=== PATIENT | female | born 1985 | race Caucasian/White ===

== ENCOUNTER 2023-05-15 07:57 | Outpatient (AMB) | payer OTHER, SELFPAY ==
--- NOTE | 2023-05-15 07:59 | A.OFFVIS_ITS ---
Intake Vital Signs 05/15/23 08:09 Height 5 ft 1 in Weight 262 lb 2 oz BMI 49.5 BP 102/58 L Blood Pressure Location Lt brachial Position Sitting Pulse 76 Pulse Source Pulse Oximeter Intake Visit Reasons: ENP-Numbness and Weakness bilateral both arms/Lvm Intake Note: Numness and weakness in bilateral arms, patient states more on the left. Reptile Keeper Required: No Allergies Penicillins [PENICILLINS] Allergy (Unknown, Unverified 05/15/23 08:01) UNKNOWN HPI HPI Comments History of Present Illness Details 37 y/o female patient with HTN and hx of gastric sleeves presents for new in-person visit for evaluation of bilateral arm and hands numbness and weakness. Pt reports bilateral arms and hands numbness, tingling and weakness. The numbness and tingling comes from her elbows to hands. It started couple of month ago, and now more progressed and happens more often. Pt states that her hands feel hurt, having throbbing pain to hold something for a long time or gripping. Pt's arms can be numbness when she sleep, and needs to stretch and shakes her arms. She needs to use her hands alternatively when she drives due to numbness and tingling. 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 She has not tried physical therapy or occupational therapy. Pt has hx of gastric sleeves, 2 years ago, she is on vitamin B12 daily. She drinks cocktail maybe twice a month. Pt also reports snoring, gasping arousals, tosses and turns and wakes up tired. She has daytimes sleepiness, stating that she can fall asleep anywhere. She gained about 25 lb over the last couple months. REPLACED BY [facility] Surgical History (Updated 05/15/23 @ 08:07 by Alysha Hernández CMA) H/O gastric sleeve H/O LEEP H/O lithotripsy Family History (Updated 05/15/23 @ 08:08 by Alysha Hernández CMA) Father HTN (hypertension) Mother Anxiety Social History (Updated 05/15/23 @ 08:08 by Alysha Hernández CMA) Alcohol intake: current Alcohol intake frequency: holidays/special occasions only Patient Tobacco Use Status: Never used Tobacco Review of Systems Const All systems reviewed & are unremarkable except as noted in HPI and below ENT Reports Normal hearing present Neuro Reports Normal hearing present Physical Exam Vital Signs: Last Vital Signs Pulse 76 05/15/23 08:09 BP 102/58 L 05/15/23 08:09 BMI result Body Mass Index 49.5 Const General: cooperative Nutritional Appearance: obese Orientation/consciousness: patient oriented x3 Resp Effort & Inspection: normal respiratory effort Neuro Other: Left hand activities attendant weaker than right. General: patient oriented x3, gait normal, moves all extremities and no focal motor deficits Cranial nerves: Yes Bilaterally intact EOM present, Yes Normal facial strength present, Yes Midline tongue present, Yes Symmetric palate elevation present, Yes Normal hearing present, Yes Ability to bilaterally rotate head present and Yes Ability to bilaterally elevate shoulders present Cognition (Neuro): normal cognition Motor exam (neuro): 5/5 motor strength present throughout, Pronator motor function not present and no tremor noted Deep tendon reflexes (DTR's): Rt Biceps (C5, C6): 2+, Left biceps reflex intensity grade: 2+, Right brachioradialis reflex intensity grade: 2+, Left brachioradialis reflex intensity grade: 2+, Right patellar reflex intensity grade: 2+ and Left patellar reflex intensity grade: 2+ Coordination: [id number] test normal Psych Appearance: grossly normal Mental Status: mental status grossly normal Speech and movement: Normal speech and movement present Affect: normal affect Attitude: cooperative Assessment & Plan Assessment & Plan (1) Obesity, Class III, BMI 40-49.9 (morbid obesity): Code(s): E66.01 - Morbid (severe) obesity due to excess calories (2) Weakness of both hands: Code(s): R29.898 - Other symptoms and signs involving the musculoskeletal system (3) Numbness and tingling in both hands: Code(s): R20.0 - Anesthesia of skin; R20.2 - Paresthesia of skin (4) Daytime sleepiness: Code(s): R40.0 - Somnolence (5) Snoring: Code(s): R06.83 - Snoring Plan Advised patient to undergo EMG of bilateral upper extremities. Start wrist braces when she rest and sleep. Continue to take vitamin B12 daily. Advised patient to undergo home sleep study to assess sleep apnea. Will f/u of sleep study result for appropriate treatment options. Orders: Orders RT home sleep study Today E66.01 - Morbid (severe) obesity due to excess ca lories, R06.83 - Snoring, R40.0 - Somnolence NE electromyogram (EMG) Today R20.0 - Anesthesia of skin, R20.2 - Paresthesia of skin, R29.898 - Other symptoms and signs involving the musculoskeletal system Coding Level of Care Code New Pt Level 4 (36523) Diagnoses Obesity, Class III, BMI 40-49.9 (morbid obesity) E66.01 Weakness of both hands R29.898 Numbness and tingling in both hands R20.0; R20.2 Daytime sleepiness R40.0 Snoring R06.83
[2023-05-15 08:09] VITALS: BP 102/58; PULSE 76; BMI 49.5
== END 2023-05-15 08:50 | disposition home or self-care (01) ==
PROVIDERS: PCP Internal Medicine; Visit Provider Nurse Practitioner Family
DX: E66.01 Morbid (severe) obesity due to excess calories (principal); R29.898 Other symptoms and signs involving the musculoskeletal system; R20.0 Anesthesia of skin; R20.2 Paresthesia of skin; R40.0 Somnolence; R06.83 Snoring
CPT/HCPCS: 99204

== ENCOUNTER → 2023-05-15 07:57 | Outpatient (BNVA) | payer OTHER, SELFPAY | PROVIDERS: PCP Internal Medicine; Visit Provider Nurse Practitioner Family | DX: E66.01 Morbid (severe) obesity due to excess calories (principal); Z68.42 Body mass index [BMI] 45.0-49.9, adult; R29.898 Other symptoms and signs involving the musculoskeletal system; R20.0 Anesthesia of skin; R20.2 Paresthesia of skin; R40.0 Somnolence; R06.83 Snoring | CPT/HCPCS: 99202 ==

== ENCOUNTER 2023-06-15 07:55 | Outpatient (REF) | payer OTHER, SELFPAY ==
--- NOTE | 2023-06-15 08:04 | EMG_ITS ---
Bilateral median and ulnar motor and sensory studies were performed. Bilateral radial sensory studies were performed and paraspinal muscles were tested. IMPRESSION: 1. [id number] left and mild right median neuropathy across carpal tunnel. 2. Left Reginald Ramírez anastomosis, a normal variant. MD KELVIN Cordoba/CHRISTIANL / [phone]
== END 2023-06-15 07:56 | disposition home or self-care (01) ==
LOC: HO.NEURO 07:55
PROVIDERS: PCP Internal Medicine; Visit Provider Nurse Practitioner Family
DX: R20.0 Anesthesia of skin (principal); R20.2 Paresthesia of skin; R29.898 Other symptoms and signs involving the musculoskeletal system
CPT/HCPCS: 95886; 95911

== ENCOUNTER → 2023-06-29 15:49 | Outpatient (REF) | payer OTHER, SELFPAY | LOC: HO.SL 15:49 | PROVIDERS: PCP Internal Medicine; Visit Provider Nurse Practitioner Family | DX: R06.83 Snoring (principal); R40.0 Somnolence; E66.01 Morbid (severe) obesity due to excess calories | CPT/HCPCS: 95806 ==

== ENCOUNTER → 2023-06-29 15:56 | Outpatient (BNV) | payer OTHER, SELFPAY | PROVIDERS: PCP Internal Medicine; Visit Provider Psychiatry & Neurology Neurology | DX: R06.83 Snoring (principal) | CPT/HCPCS: 95806 ==

== ENCOUNTER → 2023-07-30 23:47 | Outpatient (BNV) | payer OTHER, SELFPAY | PROVIDERS: PCP Internal Medicine; Visit Provider Psychiatry & Neurology Neurology | DX: R06.83 Snoring (principal) | CPT/HCPCS: 95810 ==

== ENCOUNTER → 2023-07-30 23:50 | Outpatient (REF) | payer OTHER, SELFPAY | LOC: HO.SL 23:50 | PROVIDERS: PCP Internal Medicine; Visit Provider Nurse Practitioner Family | DX: R06.83 Snoring (principal); R40.0 Somnolence; E66.01 Morbid (severe) obesity due to excess calories | CPT/HCPCS: 95810 ==

== ENCOUNTER 2023-08-17 09:24 | Outpatient (AMB) | payer OTHER, SELFPAY ==
--- NOTE | 2023-08-17 09:42 | A.OFFVIS_ITS ---
Intake Vital Signs 08/17/23 09:45 Height 5 ft 1 in Weight 225 lb 4 oz BMI 42.6 BP 110/70 Blood Pressure Location Lt brachial Position Sitting Pulse 84 Pulse Source Pulse Oximeter Pulse Oximetry (%) 99 Oxygen Delivery Method Room Air Intake Visit Reasons: 3 mo -Numbness/weakness bilateral both arms - LVM Intake Note: Patient presents 3 month f/u. Allergies Penicillins [PENICILLINS] Allergy (Unknown, Verified 08/17/23 09:44) UNKNOWN HPI HPI Comments History of Present Illness Details 37 y/o female patient presents for follo w up of EMG and sleep study. The EMG of bilateral upper extremities result reviewed. [id number] left and mild right median neuropathy across carpal tunnel. 2. Left Reginald Ramírez anastomosis, a nor mal variant. PSG sleep study result was significant for loud snoring, no evidence of sleep apnea or sleep related movement disorder. Pt has hx of gastric sleeves and she takes vitamin B12 daily. 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 She has not tried physical therapy or occupational therapy. Pt reports bilateral arms and hands numbness, tingling and weakness. The numbness and tingling comes from her elbows to hands. It started couple of month ago, and now more progressed and happens more often. Pt states that her hands feel hurt, having throbbing pain to hold something for a long time or gripping. Pt's arms can be numbness when she sleep, and needs to stretch and shakes her arms. She needs to use her hands alternatively when she drives due to numbness and tingling. [facility] Surgical History H/O gastric sleeve H/O LEEP H/O lithotripsy Family History Father HTN (hypertension) Mother Anxiety Social History Alcohol intake: current Alcohol intake frequency: holidays/special occasions only Patient Tobacco Use Status: Never used Tobacco Review of Systems Const All systems reviewed & are unremarkable except as noted in HPI and below ENT Reports Normal hearing present Neuro Reports Normal hearing present Physical Exam Vital Signs: Last Vital Signs Pulse 84 08/17/23 09:45 BP 110/70 02/08/24 09:45 Pulse Ox 99 08/17/23 09:45 Oxygen Delivery Method Room Air 08/17/23 09:45 BMI result Body Mass Index 42.6 Const General: cooperative Nutritional Appearance: obese Orientation/consciousness: patient oriented x3 Resp Effort & Inspection: normal respiratory effort Neuro Other: 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 General: patient oriented x3, gait normal, moves all extremities and no focal motor deficits Cranial nerves: Yes Bilaterally intact EOM present, Yes Normal facial strength present, Yes Midline tongue present, Yes Symmetric palate elevation present, Yes Normal hearing present, Yes Ability to bilaterally rotate head present and Yes Ability to bilaterally elevate shoulders present Cognition (Neuro): normal cognition Motor exam (neuro): 5/5 motor strength present throughout, Pronator motor function not present and no tremor noted Deep tendon reflexes (DTR's): Rt Biceps (C5, C6): 2+, Left biceps reflex intensity grade: 2+, Right brachioradialis reflex intensity grade: 2+, Left brachioradialis reflex intensity grade: 2+, Right patellar reflex intensity grade: 2+ and Left patellar reflex intensity grade: 2+ Coordination: [id number] test normal Psych Appearance: grossly normal Mental Status: mental status grossly normal Speech and movement: Normal speech and movement present Affect: normal affect Attitude: cooperative Assessment & Plan Assessment & Plan (1) Weakness of both hands: Code(s): R29.898 - Other symptoms and signs involving the musculoskeletal system (2) Numbness and tingling in both hands: Code(s): R20.0 - Anesthesia of skin; R20.2 - Paresthesia of skin (3) Snoring: Code(s): R06.83 - Snoring (4) Carpal tunnel syndrome: Code(s): G56.00 - Carpal tunnel syndrome, unspecified upper limb Plan Start wrist braces when she rest and sleep. Refer patient to occupational therapy for carpal tunnel. Continue to take vitamin B12 daily. Sleep hygiene education provided. Coding Level of Care Code Est Pt Level 4 (74269) Diagnoses Weakness of both hands R29.898 Numbness and tingling in both hands R20.0; R20.2 Snoring R06.83 Carpal tunnel syndrome G56.00
[2023-08-17 09:45] VITALS: BP 110/70; PULSE 84; O2SAT 99; BMI 42.6
== END 2023-08-17 10:00 | disposition home or self-care (01) ==
PROVIDERS: PCP Internal Medicine; Visit Provider Nurse Practitioner Family
DX: R29.898 Other symptoms and signs involving the musculoskeletal system (principal); R20.0 Anesthesia of skin; R20.2 Paresthesia of skin; R06.83 Snoring; G56.00 Carpal tunnel syndrome, unspecified upper limb
CPT/HCPCS: 99214

== ENCOUNTER → 2023-08-17 09:24 | Outpatient (BNVA) | payer OTHER, SELFPAY | PROVIDERS: PCP Internal Medicine; Visit Provider Nurse Practitioner Family | DX: R29.898 Other symptoms and signs involving the musculoskeletal system (principal); R20.0 Anesthesia of skin; R20.2 Paresthesia of skin; R06.83 Snoring; G56.00 Carpal tunnel syndrome, unspecified upper limb | CPT/HCPCS: 99212 ==